=== PATIENT | male | born 1950 | race Caucasian/White ===

== ENCOUNTER 2018-10-22 15:56 | Inpatient (IN) | payer MEDICARE, MEDICAID ==
[2018-10-22 16:53] LABS: HEMATOCRIT 46.8 % (41.0-60); HEMOGLOBIN 15.6 gm/dL (12-16); MEAN CELL VOLUME 93.7 fl (80-99); MEAN CORPUSCULAR HEMOGLOBIN 31.3 pg (27.0-31.0); MEAN CORPUSCULAR HGB CONC 33.4 pg (28.0-36.0); PLATELET COUNT 215 Th/cmm (150-400); RED CELL DISTRIBUTION WIDTH 14.4 % (11.5-20.0)
[2018-10-22 16:56] LABS: WHITE BLOOD COUNT 18.2 Th/cmm (4.8-10.8)
[2018-10-22 17:06] LABS: ALB/GLOB RATIO 1.7 (1.0-1.8); ALBUMIN 4.2 gm/dL (4.2-5.5); ALKALINE PHOSPHATASE 109 U/L (34-104); ANION GAP 14.4 (7.0-16.0); BILIRUBIN,TOTAL 0.8 mg/dL (0.3-1.0); BUN - UREA NITROGEN 11 mg/dL (7-25); CALCIUM SERUM 9.4 mg/dL (8.6-10.3); CARBON DIOXIDE 24.2 mEq/L (21.0-31.0); CHLORIDE 109 mEq/L (98-107); GFR AFRICAN-AMERICAN > 60.0 ml/min (>90); GFR NON AFRICAN-AMERICAN > 60.0 ml/min; GLUCOSE 102 mg/dL (70-105); MAGNESIUM 1.7 mg/dL (1.9-2.7); PHOSPHOROUS 1.5 mg/dL (2.5-5.0); POTASSIUM SERUM 3.6 mEq/L (3.5-5.1); SGOT 20 U/L (13-39); SGPT/ALT 23 U/L (7-52); SODIUM SERUM 144 mEq/L (136-145); TOTAL PROTEIN,SERUM 6.7 gm/dL (6.0-8.3)
[2018-10-22 17:11] LABS: URINE SOURCE CLEAN C
[2018-10-22] MEDS ORDERED: Potassium Phosphate 20 MMOLE in Sodium Chloride 0.9% 250 ML IV ONE ×2 (17:12→18:31)
[2018-10-22] MEDS ORDERED: Lactated Ringer 1,000 ML IV ONE (17:12)
[2018-10-22 17:15] LABS: URINE BILIRUBIN MODERATE (NEGATIVE); URINE BLOOD LARGE (NEGATIVE); URINE GLUCOSE (UA) 100 mg/dL (NEGATIVE); URINE KETONE 15 mg/dL (NEGATIVE); URINE LEUKOCYTE ESTERASE MODERATE (NEGATIVE); URINE MICROSCOPIC INDICATED? YES; URINE NITRATE POSITIVE (NEGATIVE); URINE PROTEIN >=300 mg/dL (NEGATIVE)
[2018-10-22] MEDS ORDERED: Piperacillin Sodium/Tazobact 3.375 gm Vial IV ONE (17:20)
[2018-10-22 17:36] LABS: URINE CLARITY CLOUDY (CLEAR); URINE COLOR RED
[2018-10-22 17:39] LABS: URINE BACTERIA MANY /hpf (NONE SEEN); URINE EPITHELIAL CELLS NONE SEEN /lpf (FEW); URINE WBC 50-100 /hpf (0-5)
[2018-10-22 17:41] LABS: AMPHETAMINE URINE NEGATIVE (NEGATIVE); BARBITURATES URINE NEGATIVE (NEGATIVE); BENZODIAZEPINES QUAL URINE NEGATIVE (NEGATIVE); CANNABINOID THC NEGATIVE (NEGATIVE); COCAINE METABOLITE QUAL URINE NEGATIVE (NEGATIVE); METHADONE URINE NEGATIVE (NEGATIVE); METHAMPHETAMINES QUAL URINE NEGATIVE (NEGATIVE); OPIATES (MORPHINE) QUAL. URINE NEGATIVE (NEGATIVE); PHENCYCLIDINE (PCP) URINE NEGATIVE (NEGATIVE); TRICYCLICS (TCA) QUAL. URINE NEGATIVE (NEGATIVE)
[2018-10-22 17:51] LABS: URINE ICTOTEST NEGATIVE (NEGATIVE)
[2018-10-22 18:04] LABS: BAND NEUTROPHILE 0 % (0-10); BASOPHIL 0 % (0-3); EOSINOPHIL 1 % (0-5); LYMPHOCYTE 5 % (20-50); MONOCYTE 4 % (2-10); NEUTROPHILS 90 % (40-80)
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
[2018-10-22] MEDS ORDERED: Acetaminophen 500 MG TAB PO PRN (20:27)
[2018-10-22] MEDS: D5-0.45NS w/20 mEq KCL 1,000 ML IV SCH (20:40)
[2018-10-22] MEDS: Cefepime 1 GM in Sodium Chloride 0.9% 50 ML IV SCH (20:57)
--- NOTE | 2018-10-22 21:24 | History & Physical ---
ADMIT DATE: 10/22/2018 CHIEF COMPLAINT: Fever, tachycardia for 1 day duration. HISTORY OF PRESENT ILLNESS: The patient is a 68-year-old male with long history of traumatic brain injury. Lives at home with his , presented to the Emergency Room with fever and tachycardia. Initial workup significant for urinary infection. The patient admitted to the hospital, started on IV fluid, antibiotic. No nausea, no vomiting, no hematuria. PAST MEDICAL HISTORY: Significant for traumatic brain injury, history of CA of colon. PAST SURGICAL HISTORY: Significant for exploratory laparotomy, hemicolectomy, cholecystectomy, brain surgery. ALLERGIES: MISAEL. SOCIAL HISTORY: No smoking, no alcohol, no drugs. FAMILY HISTORY: Noncontributory. MEDICATIONS: Follow admission reconciliation. REVIEW OF SYSTEMS: RENAL SYSTEM: No history of chronic renal disorder. CARDIOVASCULAR SYSTEM: No coronary artery disease. ENDOCRINE SYSTEM: No diabetes or thyroid problem. GASTROINTESTINAL SYSTEM: Lower gastrointestinal bleed. NEUROLOGICAL SYSTEM: No seizure disorder. MUSCULOSKELETAL SYSTEM: No muscular dystrophy. HEMATOLOGICAL SYSTEM: No bleeding tendencies. RESPIRATORY SYSTEM: No asthma. GENITOURINARY: Urinary infection. PHYSICAL EXAMINATION: GENERAL: He is awake, not coherent. VITAL SIGNS: Temperature is 99.8, heart rate 108, blood pressure 130/70. HEENT: Normocephalic. Pupils reactive to light and accommodation. Sclerae clear. NECK: Supple. Negative for lymphadenopathy, JVD or bruit. CHEST: Entry of air bilaterally normal. No rhonchi or wheezing. HEART: S1, S2 normal. No gallop rhythm. ABDOMEN: Soft, bowel sounds positive. EXTREMITIES: No edema. NEUROLOGIC: He is awake, alert, not oriented. LABORATORY DATA: White blood cell 18.2, hemoglobin 15.6, hematocrit 46.8, platelet 215. Lactic acid 2.18, phosphorus 1.5, magnesium 1.7. Urinalysis, specific gravity 1.0, nitrite positive, leukocyte moderate, white blood cells 50-100. ASSESSMENT: 1. Urinary tract infection. 2. Sepsis. 3. History of traumatic brain injury. 4. Metabolic encephalopathy. PLAN: The patient was admitted to the telemetry, started on IV fluid, antibiotic. Resume his medication and diet. CBC, CMP for tomorrow. The patient to receive his phosphorus 1 bag. Case discussed with the family at bedside. JOB# [id number]
[2018-10-23 06:32] LABS: EOSINOPHILE ABSOLUTE 0.1 Th/cmm (0.1-0.4); HEMATOCRIT 48.1 % (41.0-60); HEMOGLOBIN 15.9 gm/dL (12-16); LYMPHOCYTE ABSOLUTE 1.1 Th/cmm (1.5-3.0); MEAN CELL VOLUME 94.5 fl (80-99); MEAN CORPUSCULAR HEMOGLOBIN 31.3 pg (27.0-31.0); MEAN CORPUSCULAR HGB CONC 33.1 pg (28.0-36.0); MEAN PLATELET VOLUME 8.5 fl; MONOCYTE ABSOLUTE 0.9 Th/cmm (0.3-1.0); NEUTROPHILE ABSOLUTE 18.8 Th/cmm (1.8-8.0); PLATELET COUNT 115 Th/cmm (150-400); RED BLOOD COUNT 5.09 Mil/cmm (3.80-5.80); RED CELL DISTRIBUTION WIDTH 14.5 % (11.5-20.0)
[2018-10-23 06:54] LABS: WHITE BLOOD COUNT 20.9 Th/cmm (4.8-10.8)
[2018-10-23 07:01] LABS: ALB/GLOB RATIO 1.5 (1.0-1.8); ALBUMIN 3.5 gm/dL (4.2-5.5); ALKALINE PHOSPHATASE 93 U/L (34-104); ANION GAP 15.8 (7.0-16.0); BILIRUBIN,TOTAL 1.3 mg/dL (0.3-1.0); BUN - UREA NITROGEN 11 mg/dL (7-25); CALCIUM SERUM 8.3 mg/dL (8.6-10.3); CHLORIDE 109 mEq/L (98-107); GFR AFRICAN-AMERICAN > 60.0 ml/min (>90); GFR NON AFRICAN-AMERICAN > 60.0 ml/min; GLUCOSE 105 mg/dL (70-105); MAGNESIUM 1.6 mg/dL (1.9-2.7); PHOSPHOROUS 2.6 mg/dL (2.5-5.0); POTASSIUM SERUM 3.8 mEq/L (3.5-5.1); SGOT 16 U/L (13-39); SGPT/ALT 18 U/L (7-52); SODIUM SERUM 140 mEq/L (136-145); TOTAL PROTEIN,SERUM 5.8 gm/dL (6.0-8.3)
[2018-10-23 08:28] LABS: LYMPHOCYTE 7 % (20-50); MONOCYTE 3 % (2-10); NEUTROPHILS 90 % (40-80)
[2018-10-23] MEDS: Enoxaparin 40 mg/0.4 mL 0.4mL Syr SUBQ SCH ×2 (09:01→10:34)
[2018-10-23] MEDS: Cefepime 1 GM in Sodium Chloride 0.9% 50 ML IV SCH ×2 (09:05→20:41)
[2018-10-23] MEDS: D5-0.45NS w/20 mEq KCL 1,000 ML IV SCH (11:28)
[2018-10-23] MEDS ORDERED: Mag Sulfate 2gm/50mL Premix 2 GM/50 ML BAG IV ONE (17:17)
--- NOTE | 2018-10-23 17:43 | Internal Medicine Prog Note ---
Internal Medicine Subjective - Subjective Service Date: 10/23/18 Patient seen and examined:: with staff Patient is:: awake, verbal, in bed, talking Per staff patient has:: no adverse event Internal Medicine Objective - Results Result Diagrams: 10/23/18 05:50 10/23/18 05:50 Recent Labs: Laboratory Last Values WBC 20.9 Th/cmm (4.8-10.8) H* 10/23/18 05:50 RBC 5.09 Mil/cmm (3.80-5.80) 10/23/18 05:50 Hgb 15.9 gm/dL (12-16) 10/23/18 05:50 Hct 48.1 % (41.0-60) 10/23/18 05:50 MCV 94.5 fl (80-99) 10/23/18 05:50 MCH 31.3 pg (27.0-31.0) H 10/23/18 05:50 MCHC Differential 33.1 pg (28.0-36.0) 10/23/18 05:50 RDW 14.5 % (11.5-20.0) 10/23/18 05:50 Plt Count 115 Th/cmm (150-400) L D 10/23/18 05:50 MPV 8.5 fl 10/23/18 05:50 Add Manual Diff YES 10/23/18 05:50 Band Neutrophils % 0 % (0-10) 10/22/18 16:40 Neutrophils (Manual) 90 % (40-80) H 10/23/18 05:50 Lymphocytes 7 % (20-50) L 10/23/18 05:50 Monocytes 3 % (2-10) 10/23/18 05:50 Eosinophils 1 % (0-5) 10/22/18 16:40 Basophils 0 % (0-3) 10/22/18 16:40 Sodium 140 mEq/L (136-145) 10/23/18 05:50 Potassium 3.8 mEq/L (3.5-5.1) 10/23/18 05:50 Chloride 109 mEq/L (98-107) H 10/23/18 05:50 Carbon Dioxide 19.0 mEq/L (21.0-31.0) L 10/23/18 05:50 Anion Gap 15.8 (7.0-16.0) 10/23/18 05:50 BUN 11 mg/dL (7-25) 10/23/18 05:50 Creatinine 1.0 mg/dL (0.7-1.3) 10/23/18 05:50 Est GFR ( Amer) > 60.0 ml/min (>90) 10/23/18 05:50 Est GFR (Non-Af Amer) > 60.0 ml/min 10/23/18 05:50 BUN/Creatinine Ratio 11.0 10/23/18 05:50 Glucose 105 mg/dL (70-105) 10/23/18 05:50 Whole Bld Lactic Acid 2.18 mmol/L (0.60-1.99) H* 10/22/18 18:49 Calcium 8.3 mg/dL (8.6-10.3) L 10/23/18 05:50 Phosphorus 2.6 mg/dL (2.5-5.0) 10/23/18 05:50 Magnesium 1.6 mg/dL (1.9-2.7) L 10/23/18 05:50 Total Bilirubin 1.3 mg/dL (0.3-1.0) H 10/23/18 05:50 AST 16 U/L (13-39) 10/23/18 05:50 ALT 18 U/L (7-52) 10/23/18 05:50 Alkaline Phosphatase 93 U/L (34-104) 10/23/18 05:50 Total Protein 5.8 gm/dL (6.0-8.3) L 10/23/18 05:50 Albumin 3.5 gm/dL (4.2-5.5) L 10/23/18 05:50 Globulin 2.3 gm/dL 10/23/18 05:50 Albumin/Globulin Ratio 1.5 (1.0-1.8) 10/23/18 05:50 Urine Source CLEAN C 10/22/18 16:59 Urine Color RED 10/22/18 16:59 Urine Clarity CLOUDY (CLEAR) 10/22/18 16:59 Urine pH 5.0 (4.6 - 8.0) 10/22/18 16:59 Ur Specific [place] 1.025 (1.005-1.030) 10/22/18 16:59 Urine Protein >=300 mg/dL (NEGATIVE) 10/22/18 16:59 Urine Glucose (UA) 100 mg/dL (NEGATIVE) H 10/22/18 16:59 Urine Ketones 15 mg/dL (NEGATIVE) H 10/22/18 16:59 Urine Blood LARGE (NEGATIVE) H 10/22/18 16:59 Urine Nitrate POSITIVE (NEGATIVE) H 10/22/18 16:59 Urine Bilirubin MODERATE (NEGATIVE) H 10/22/18 16:59 Urine Ictotest NEGATIVE (NEGATIVE) 10/22/18 16:59 Urine Urobilinogen 1.0 E.U./dL (0.2 - 1.0) 10/22/18 16:59 Ur Leukocyte Esterase MODERATE (NEGATIVE) H 10/22/18 16:59 Urine RBC 2-5 /hpf (0-5) H 10/22/18 16:59 Urine WBC 50-100 /hpf (0-5) H 10/22/18 16:59 Ur Epithelial Cells NONE SEEN /lpf (FEW) 10/22/18 16:59 Urine Bacteria MANY /hpf (NONE SEEN) H 10/22/18 16:59 Urine Opiates Screen NEGATIVE (NEGATIVE) 10/22/18 16:59 Urine Methadone Screen NEGATIVE (NEGATIVE) 10/22/18 16:59 Ur Barbiturates Screen NEGATIVE (NEGATIVE) 10/22/18 16:59 Ur Tricyclics Screen NEGATIVE (NEGATIVE) 10/22/18 16:59 Ur Phencyclidine Scrn NEGATIVE (NEGATIVE) 10/22/18 16:59 Amphetamines Screen NEGATIVE (NEGATIVE) 10/22/18 16:59 U Methamphetamines Scrn NEGATIVE (NEGATIVE) 10/22/18 16:59 U Benzodiazepines Scrn NEGATIVE (NEGATIVE) 10/22/18 16:59 U Cocaine Metab Screen NEGATIVE (NEGATIVE) 10/22/18 16:59 U Cannabinoids Screen NEGATIVE (NEGATIVE) 10/22/18 16:59 - Physical Exam Vitals and I&O: Vital Signs Temp 98.5 F 10/23/18 12:00 Pulse 99 10/23/18 16:00 Resp 28 10/23/18 16:00 BP 114/51 10/23/18 16:00 Pulse Ox 99 10/23/18 16:00 Intake & Output 10/22/18 10/23/18 10/23/18 18:59 06:59 18:59 Intake Total 50 Balance 50 Weight (lbs) 73.936 kg 75.296 kg Intake: Intake, IV Amount 50 Cefepime 1 gm In Sodium 50 50 Chloride 0.9% 50 ml @ 100 mls/hr IV Q12HR [facility] Rx#: [id number] D5-0.45NS w/20 mEq KCL 1, 700 300 000 ml @ 75 mls/hr IV . [id number] [facility] Rx#:[id number] Oral 50 Other: # Voids 3 # Bowel Movements 0 Stool Characteristics Soft Brown Weight Source Estimated Bedscale Active Medications: Current Medications Acetaminophen (Tylenol Extra Strength) 500 mg PO Q4HR PRN PRN Reason: MILD PAIN 1-3 Stop: 12/21/18 20:26 Last Admin: 10/22/18 20:56 Dose: 500 mg Amantadine HCl (Symmetrel) 200 mg PO DAILY [facility] Stop: 12/22/18 08:59 Last Admin: 10/23/18 09:01 Dose: 200 mg Enoxaparin Sodium (Lovenox) 40 mg SUBQ DAILY [facility] Stop: 12/22/18 08:59 Last Admin: 10/23/18 10:34 Dose: Not Given Cefepime HCl 1 gm/ Sodium (Chloride) 50 mls @ 100 mls/hr IV Q12HR [facility] Stop: 12/21/18 20:59 Last Infusion: 10/23/18 10:16 Dose: Infused Potassium Chloride/Dextrose/Sod Cl (D5-0.45ns W/20 Meq Kcl) 1,000 mls @ 75 mls/ hr IV .[id number] [facility] Stop: 12/21/18 20:29 Last Admin: 10/23/18 11:28 Dose: 75 mls/hr Magnesium Sulfate (Magnesium Sulfate Premix) 2 gm in 50 mls @ 25 mls/hr IV X1 ONE Stop: 10/23/18 19:16 Ketorolac Tromethamine (Toradol) 30 mg IVP Q6HR PRN PRN Reason: Pain (Moderate) LEVEL 4-6 Stop: 12/21/18 20:28 Loperamide HCl (Imodium) 2 mg PO DAILY [facility] Stop: 12/22/18 08:59 Last Admin: 10/23/18 09:01 Dose: 2 mg Ondansetron HCl (Zofran) 4 mg IV Q4H PRN PRN Reason: Nausea / Vomiting Stop: 12/21/18 20:27 General: alert, demented HEENT: NC/AT, PERRLA, EOMI, anicteric sclerae, throat clear Neck: Supple, No JVD, No thyromegaly, +2 carotid pulse wo bruit Lungs: CTAB Cardiovascular: Normal S1, Normal S2, without murmur Abdomen: soft, non-tender, non-distended Extremities: clear Neurological: no change Internal Medicine Assmt/Plan - Assessment Assessment: 1.UTI. 2.SEPSIS. 3.LEUKOLYSIS. - Plan Plan: CBC IN AM.CONTINUE ON IV ABS.THE CASE DW HIS .
[2018-10-24] MEDS: D5-0.45NS w/20 mEq KCL 1,000 ML IV SCH (00:59)
[2018-10-24 05:27] LABS: HEMATOCRIT 43.7 % (41.0-60); HEMOGLOBIN 14.4 gm/dL (12-16); MEAN CELL VOLUME 94.4 fl (80-99); MEAN CORPUSCULAR HEMOGLOBIN 31.2 pg (27.0-31.0); MEAN PLATELET VOLUME 8.2 fl; RED BLOOD COUNT 4.62 Mil/cmm (3.80-5.80); RED CELL DISTRIBUTION WIDTH 14.3 % (11.5-20.0)
[2018-10-24 05:44] LABS: ALB/GLOB RATIO 1.3 (1.0-1.8); ALBUMIN 3.4 gm/dL (4.2-5.5); ALKALINE PHOSPHATASE 109 U/L (34-104); ANION GAP 12.1 (7.0-16.0); BILIRUBIN,TOTAL 1.1 mg/dL (0.3-1.0); BUN - UREA NITROGEN 8 mg/dL (7-25); CALCIUM SERUM 8.5 mg/dL (8.6-10.3); CARBON DIOXIDE 21.4 mEq/L (21.0-31.0); CHLORIDE 108 mEq/L (98-107); GFR AFRICAN-AMERICAN > 60.0 ml/min (>90); GFR NON AFRICAN-AMERICAN > 60.0 ml/min; GLUCOSE 108 mg/dL (70-105); POTASSIUM SERUM 3.5 mEq/L (3.5-5.1); SGOT 9 U/L (13-39); SGPT/ALT 13 U/L (7-52); SODIUM SERUM 138 mEq/L (136-145)
[2018-10-24 05:51] LABS: PLATELET COUNT 210 Th/cmm (150-400); WHITE BLOOD COUNT 15.8 Th/cmm (4.8-10.8)
[2018-10-24 06:18] LABS: BAND NEUTROPHILE 2 % (0-10); EOSINOPHIL 4 % (0-5); LYMPHOCYTE 10 % (20-50); MONOCYTE 6 % (2-10); NEUTROPHILS 78 % (40-80); PLATELET ESTIMATE ADEQUATE (NORMAL)
[2018-10-24] MEDS: Cefepime 1 GM in Sodium Chloride 0.9% 50 ML IV SCH (10:14)
[2018-10-24] MEDS: Enoxaparin 40 mg/0.4 mL 0.4mL Syr SUBQ SCH (10:16)
--- NOTE | 2018-10-25 01:50 | Discharge Summary ---
DATE OF DISCHARGE: 10/24/2018 FINAL DIAGNOSES: 1. Urinary infection. 2. Sepsis. 3. Acute metabolic encephalopathy. 4. History of traumatic brain injury. REVIEW OF HISTORY: The patient is a 68-year-old male with long history of traumatic brain injury, presented to the Emergency Room with fever, tachycardia, confusion; evaluated by ER physician. Initial workup significant for infection, sepsis, metabolic encephalopathy, admitted to the telemetry, started on IV fluid and antibiotics. PHYSICAL EXAMINATION: VITAL SIGNS: Temperature 99.8, heart rate 108, and blood pressure 130/70. CHEST: Clear to auscultation. ABDOMEN: Soft, bowel sounds positive. EXTREMITIES: No edema. LABORATORY DATA: White blood cell 18.2 and hemoglobin 15.6. Lactic acid 2.18, phosphorus 1.5, magnesium 1.7. COURSE OF HOSPITALIZATION: On second day of hospitalization, the patient was feeling better. No fever, no chills. Temperature 98 and heart rate 88. White blood cell 20.9 and hemoglobin 15.9. Sodium 140 and potassium 3.8. Disposition on 10/24/2018. Urine culture positive for E. coli, sensitive to Rocephin. The patient feels well, eating good. No fever, no chills. White blood 15.8, hemoglobin 14.4, hematocrit 43.7. Sodium 138 and potassium 3.5. DISPOSITION: The patient discharged home to be followed up with primary physician as outpatient. The patient was discharged on Rocephin 1 gram IM once a day for 7 days. [facility] ordered for a visit and give antibiotic. CONDITION ON DISCHARGE: Stable. [facility]# [id number]
== END 2018-10-24 17:00 | disposition home health service (06) | DRG 871 ==
LOC: ER 15:56 → ICU 19:18
PROVIDERS: ADMIT Family Medicine; ATTEND Family Medicine
DX: A41.9 Sepsis, unspecified organism (principal); G93.41 Metabolic encephalopathy; N39.0 Urinary tract infection, site not specified; K56.609 Unspecified intestinal obstruction, unspecified as to partial versus complete obstruction; E86.0 Dehydration; G93.9 Disorder of brain, unspecified; Z90.49 Acquired absence of other specified parts of digestive tract; Z88.8 Allergy status to other drugs, medicaments and biological substances
CPT/HCPCS: 36415-UA; 80053-TC; 80307; 81001-TC; 83605; 83735-TC; 84100-TC; 85007-TC; 85025-TC; 87086-90; 90784; 90799; 93005; J0692; J1650; J2543; J3475; Z7610